=== PATIENT | female | born 1970 | race Caucasian/White ===

== ENCOUNTER 2018-03-22 08:51 | Day surgery (SDC) | payer OTHER, SELFPAY ==
[2018-03-16 10:45] VITALS: BMI 34.2
[2018-03-22] VITALS (13 sets, daily range): BP systolic 97–144; BP diastolic 58–96; PULSE 71–107; RESP 10–20; TEMP 36.1–37.2; O2SAT 96–100; BMI 34.2
[2018-03-22] MEDS: CELECOXIB 200 MG CAPSULE PO (09:41)
[2018-03-22] MEDS: LACTATED RINGERS 1,000 ML 42 ML IV (09:41)
[2018-03-22] MEDS: ACETAMINOPHEN 325 MG TABLET 975 MG PO ×3 (09:42→20:31)
[2018-03-22] MEDS: PREGABALIN 75 MG CAPSULE PO (10:18)
[2018-03-22] MEDS: VANCOMYCIN 1,000 MG/200 ML FROZ.PIGGY 200 MG IV ×2 (10:19→22:40)
--- NOTE | 2018-03-22 10:25 | PM.PREOP ---
Pre-operative Note Interval Note Pre-op Check: Yes History & Physical Reviewed by Physician and Yes Exam Performed Changes: No
[2018-03-22] MEDS: ONDANSETRON 4 MG/2 ML INJ IV ×3 (10:39→21:35)
[2018-03-22] MEDS: DEXAMETHASONE 10 MG/ML VIAL 8 MG IV (10:41)
--- NOTE | 2018-03-22 11:03 | PM.OP.1 ---
Operative Date/Time/Diagnoses Date of procedure: 03/22/18 Time of procedure: 12:30 Pre-op diagnosis: Left knee osteoarthritis Post-op diagnosis: same Procedure & Clinicians Procedure: Left total knee replacement Same procedure as scheduled: Yes Indications: The patient has had progressively worsening left knee pain with radiographic changes consistent with arthritis. Non-operative management has failed and the patient has requested total knee replacement. The risks, benefits and alternatives to surgery were discussed with the patient prior to proceeding. Risks discussed included, but were not limited to, failure to relieve pain, stiffness, infection, nerve damage, deep venous thrombosis, pulmonary embolism, stroke, coma, heart attack, permanent paralysis and , as well as the potential need for eventual revision of the prosthetic. Surgeon: Milind Cantrell Wheel Installer: Merced Rosales Click Yes if Unassisted: No Anesthesia Type: Spinal, Sedation and Local Operative Notes Findings: Severe medial and significant patellofemoral osteoarthritis Closure Type: primary Specimen(s): none sent Implants & Drains: Implants used in this procedure were manufactured by the [employer] and [email or web address] and included the BCS II Journey total knee replacement with a size 3 Oxinium femur, a size 2 non porous tibial base plate, a 9 mm cross-linked polyethylene BCS II tibial insert and a 29 mm oval Jaylyn II patellar implant. Applied: implant(s) Estimated Blood Loss (mL): 25 Blood products transfused: none Tourniquet time (min): 54 Procedure in detail: The patient was seen in the pre-operative area, where the left knee was identified as the operative site and this was marked with my initials. The patient received pre-operative antibiotics, and was taken to the operating room and placed on the operative table in the supine position. After satisfactory anesthesia, a registered phlebotomist part time out? was performed. The left leg was encircled with a tourniquet about the proximal thigh, and the leg was prepared from the toes to the tourniquet with ChloroPrep in the usual fashion and draped through sterile drapes. The leg was elevated and exsanguinated with Eschmark bandage and the tourniquet inflated to 250 mmHg pressure. The knee was approached through an approximately 18 cm incision centered over the patella and carried into the knee through a medial parapatellar arthrotomy. The anterior osteophytes and soft tissues were removed. The rotational landmarks of Loly's line and the transepicondylar axis were marked on the femur with electrocautery, and intramedullary guide holes for the femur and tibia were created. The distal femoral cut was made in 6 degrees of valgus using the intramedullary guide at the primary cut setting. The proximal tibial cut was then made using the intramedullary guide, taking 9 mm of bone off the less involved side. The extension gap was checked and the rotation of the femoral component confirmed with the gap balancing blocks. The anterior, posterior and chamfer cuts were then made. The posterior osteophytes and soft tissues were then removed. The posterior capsule was injected with part of a mixture of 50 ml 0.25% Marcaine mixed with 20 ml Exparel and 4 mg of morphine for post-operative pain control. The remainder of this mixture was injected into the capsule and subcutaneous tissues during cement curing. The tibia was prepared with the rotation set by an extra medullary guide. Trial tibial and femoral components were then placed and the intercondylar notch cut through the femoral trial. Range of motion was 0-135 degrees, with good stability throughout the range. The patella was then cut to accommodate the patellar prosthetic. There was no need for a lateral release. The trials were then removed, and the femoral hole plugged with a bone plug. The bone was prepared with pulsatile lavage, and dried with a sponge. Cement was applied and the final prosthetics placed. Excess cement was removed during and after cement curing. After confirming there was no extruded cement posteriorly, the final tibial insert was placed. The knee was copiously irrigated and the tourniquet deflated. Hemostasis was obtained. The capsule was closed with interrupted # 2 polyester sutures. The subcutaneous layer was closed with 3-0 Vicryl, and the skin with a running 3-0 V-Lock suture and SteriStrips. An Aquacel Ag dressing was applied and the patient was taken to recovery having tolerated the procedure well. Complications: none Condition: stable Disposition: PACU Plan for aftercare: The patient will be maintained on a standard total knee replacement protocol with weight bearing as tolerated. The patient will receive aspirin and sequential compression devices for DVT prophylaxis. The patient will be discharged home when safe for the home environment.
[2018-03-22] MEDS: TRANEXAMIC ACID 1,000 MG VIAL 2000 MG INJ ×2 (11:18→12:22)
--- NOTE | 2018-03-22 11:37 | SUR.OPER ---
Supine on padded OR bed. Pillow under head, arms secured on padded armboards <90 degree abduction. Safety belt across torso. Non-operative leg secured with tape over blanket over lower leg. Operative leg secured in DeMayo/Julio positioner. Foam padded brace at thigh of operative leg.
[2018-03-22] MEDS: BUPIVACAINE 0.25% W/ EPI VIAL 50 ML INJ (11:43)
[2018-03-22] MEDS: BUPIVACAINE LIPOSOME 266 MG/20 ML VIAL INJ (11:44)
[2018-03-22] MEDS: MORPHINE 4 MG/ML INJ IV (11:46)
--- NOTE | 2018-03-22 12:27 | PC.NURSE ---
Day shift: Pt not on this AC unit at tis time. 1230.
--- NOTE | 2018-03-22 12:44 | DI.RAD.S_ITS ---
PROCEDURE: XR KNEE LT 1TO2V INDICATIONS: post operative total left knee TECHNIQUE: 2 view(s) of the knee acquired. COMPARISON: [facility], , KNEE 1-2 VIEWS RIGHT, 06/22/2017, 13:00. FINDINGS: Bones: Patient is status post knee joint arthroplasty. Hardware components are in expected positions. Visualized bony structures are intact. Soft tissues: Overlying postoperative changes are noted. IMPRESSION: Expected postoperative appearance Dictated by: Tulio Billy M.D. on 03/22/2018 at 13:21 Approved by: Tulio Billy M.D. on 03/22/2018 at 13:21
[2018-03-22] MEDS: HYDROMORPHONE 2 MG INJ 0.5 MG IV ×4 (13:05→13:35)
--- NOTE | 2018-03-22 13:25 | SUR.PHASEI ---
assumed care from andree, medicated with dilaudid for 10/10 pain to l knee, now down to 6/10. placed on naqsal cannula 02 as pt became sleepy after med given.
--- NOTE | 2018-03-22 13:49 | PC.NURSE ---
Day shift: Arrived on unit at approx 1335 from PACU. A&Ox3. Oriented to room and call light. Agrees to not get OOB w/o help. Left ian HARDIN and Niharika CARBONE. Tolerating SCD's. Drinking ice water and having a cracker.
[2018-03-22] MEDS: LACTATED RINGERS 1,000 ML 125 ML IV ×2 (14:31→22:41)
[2018-03-22] MEDS: HYDROMORPHONE 0.5 MG INJ IV (15:00)
--- NOTE | 2018-03-22 15:02 | PT.IPTN ---
Current Diagnoses Unilateral primary osteoarthritis, left knee (03/22/18) Surgery Performed Operation Date: 03/22/18 11:15 Actual Procedures p Total Knee Arthroplasty(Left) - Milind Cantrell MD Physical Therapy Treatment Note M3 PT-IP Subjective Start: 03/22/18 15:01 Freq: NEEDED Status: Active Protocol: Document 03/22/18 15:01 [facility] (Rec: 03/22/18 15:02 [facility] [email or web address]) Subjective Physical Therapy Visit Type Type Patient Unavailable Visit Start Time 15:00 Notes Checked on pt and she was drowsy and falling asleep during assessment of mm strength. Does not have quad or glute activation at this time. Will check back when pt more appropriate.
[2018-03-22] MEDS: OXYCODONE IR 5 MG TABLET PO ×2 (16:37→20:29)
--- NOTE | 2018-03-22 16:58 | PT.IPTN ---
Current Diagnoses Unilateral primary osteoarthritis, left knee (03/22/18) Surgery Performed Operation Date: 03/22/18 11:15 Actual Procedures p Total Knee Arthroplasty(Left) - Milind Cantrell MD Physical Therapy Treatment Note M3 PT-IP Subjective Start: 03/22/18 15:01 Freq: NEEDED Status: Active Protocol: Document 03/22/18 16:54 [facility] (Rec: 03/22/18 16:58 [facility] [id number]) Subjective Physical Therapy Visit Type Type Patient Refusal Notes At 1650 pt approached in bed with pain meds was given; unable to lift LLE with increased left knee pain when tried. Patient in tears while trying to perform MMT. Nurse informed the situation and patient agreeable to participate tomorrow a.m
[2018-03-22] MEDS: ASPIRIN EC 81 MG TABLET PO (20:29)
[2018-03-22] MEDS: AMLODIPINE 5 MG TABLET 10 MG PO (20:29)
[2018-03-22] MEDS: DOCUSATE 100 MG CAPSULE PO (20:31)
[2018-03-22] MEDS: buPROPion SR 150 MG TAB PO (20:31)
[2018-03-22] MEDS: INFLUENZA VACCINE 0.5 ML SYRINGE IM (20:36)
[2018-03-22] MEDS: BECLOMETHASONE 40 MCG INH 10.6 GM 2 PUFF INH (20:37)
--- NOTE | 2018-03-22 23:41 | PC.NURSE ---
1500- assumed care of pt from outgoing shift at this time. Pt asleep at this time. Lr infusing. call light and belongings within reach. will continue o monitor 1600- Pt awake. compliant with nursing assessment. Pt uses call light. Pt nauseous. but states it should pass. family at bedside. 1700- Pt ate dinner then threw up. states she thinks she ate too fast. Pt then finished a bit more of dinner. 2019- compliant with med pass. did get a little nauseous after meds given, did not throw up. given zofran. did help a little pt stated it didn't h3elp as much as earlier though. Pt pain seems pretty well controlled with oral oxycodone. Pt tolerating well. Pt set up home cpap. given sterile water. Pt cooperative. Pt completes all tala care. Pt is on her period, pads provided and brief given. dsg c.d.i. will continue to monitor. Pt not oob, unable to do any work with Pt as pain was too severe. scds on. will continue to monitor.
[2018-03-23] MEDS: OXYCODONE IR 5 MG TABLET PO ×6 (00:22→16:15)
[2018-03-23] MEDS: IBUPROFEN 600 MG TABLET PO ×2 (03:59→12:52)
[2018-03-23 05:48] VITALS: BP 107/69; PULSE 94; RESP 18; TEMP 36.7; O2SAT 98
[2018-03-23 06:09] LABS: Hematocrit 35.2 % (36-46); Hemoglobin 12.5 g/dL (12.0-16.0)
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
[2018-03-23 07:53] VITALS: BP 112/74; PULSE 77; RESP 16; TEMP 36.7; O2SAT 99
[2018-03-23] MEDS: ACETAMINOPHEN 325 MG TABLET 975 MG PO ×2 (08:59→14:51)
[2018-03-23] MEDS: ASPIRIN EC 81 MG TABLET PO (08:59)
[2018-03-23] MEDS: CHLORTHALIDONE 25 MG TABLET PO (09:00)
[2018-03-23] MEDS: IRBESARTAN 150 MG TABLET PO (09:00)
[2018-03-23] MEDS: DOCUSATE 100 MG CAPSULE PO (09:00)
[2018-03-23] MEDS: buPROPion SR 150 MG TAB PO (09:00)
[2018-03-23] MEDS: POLYETHYLENE GLYCOL 3350 17 GM POWD.PACK PO (09:01)
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
[2018-03-23] MEDS: hydrOXYzine pamoate 25 MG CAPSULE PO ×2 (09:58→14:50)
[2018-03-23] MEDS: BECLOMETHASONE 40 MCG INH 10.6 GM 2 PUFF INH (10:24)
[2018-03-23] MEDS: ONDANSETRON 4 MG/2 ML INJ IV ×2 (10:27→10:53)
[2018-03-23 10:31] VITALS: O2SAT 98
[2018-03-23 11:20] VITALS: BP 110/67; PULSE 79; RESP 17; TEMP 36.8; O2SAT 100
--- NOTE | 2018-03-23 14:59 | CM.DANOTE ---
DCP/Assessment: Reviewed chart. Patient is a 48yr old female admitted to [facility] ([facility]) for left TKA performed on 03-22-[address] Cantrell. PCP is Dr. Guadarrama. Primary payor is Jam[employer]. Met with patient explained CM/SW role. Patient reports that she plans to d/c home today. Patient had right knee done this year and feels comfortable with what to expect. Patient has family in the residence that can assist. Patient has all needed DME and outpatient therapy scheduled in [place]. No additional d/c planning needs identified. P: Home today. ANUPAMA Irene Discharge Planning/Care Management CM Discharge Assessment Start: 03/23/18 14:57 Freq: Status: Active Protocol: Document 03/23/18 14:57 KJS (Rec: 03/23/18 14:57 KJS [id number]) Discharge Planning Assessment Assigned Ordnance Engineering Technician ANUPAMA Irene Contact Information Shaji Rene (ph# [phone] ) Advance Directives? No History Provided By Patient Has Patient been admitted in last 30 No days? Prior Living Arrangements House Household Members significant other children Type of transporation used prior to Drives own vehicle admit Independent with ADL's Yes Is patient alert and oriented? Yes Caregiver for Another No Patient/Family Preference OP PT Therapy Barriers to Discharge No Discharge Plan Home Referrals Initiated None needed Review Status In Process Please Provide Date Initial DC 03/23/18 Assessment Was Performed Next Review Type Continued Stay Review Pre-Anesthesia Assessment Start: 03/16/18 10:45 Freq: Status: Complete Protocol: Document 03/16/18 10:45 CAB (Rec: 03/16/18 11:34 CAB [id number]) Pre-Anesthesia Assessment Patient Information Reviewed Via Phone Assessment Assessment Completed With Patient Consent for Planned Operative Procedure( Yes s) Verified Primary Care Provider Neo Seen Specialist in Last 12 Months Yes Specialist Seen Orthopedist Comment PCP clearance note 03/11/18 to med records to be scanned Primary Language Trinidadian Mill Stenciler Required No Height 159.39 cm Weight 87.09 kg Body Mass Index (BMI) 34.2 Hearing Ability Normal Visual Assist Contacts Glasses Dentition Type Teeth, Natural Present Barriers to Learning Memory Comment Short term memory loss r/t TBI Hx Anesthesia Reactions No Hx Family Anesthesia Reaction No Hx Malignant Hyperthermia No Hx Blood Transfusions No Anesthesia Review Requested No Brick Or Block Maker No alcohol intake current alcohol intake frequency a few times a month Smoking Status Never smoker Substance Use Type marijuana Comment Edible form Pain Present Pain Reported Musculoskeletal Symptoms Abnormal Gait Back Pain Difficulty Walking Joint Pain Muscle Weakness Neck Pain Numbness Radiating Pain into Limb History of Falling (Recent or History of No ) Patient is completely paralyzed or No completely immobile Mental Status Oriented to own ability Is patient on oxygen? No Does patient have HAGER/SOB No Hx Sleep Apnea Yes CPAP/BIPAP use prescribed and used routinely Will Bring CPAP/BIPAP DOS Yes Currently Taking a Beta Juventino No Can You Climb a Flight of Stairs Without Yes SOB Hx Chest Pain No Hx SOB Yes: r/t Asthma Hx Syncope or Dizziness No Anti-Coagulant Therapy No Has a Blow Down Operator No Cardiac Testing No Hx Pacemaker/ICD No Pacemaker Rep Required? No Cardiac Clearance Received Not Applicable Diet Type At Home Regular dysphagia No Bladder Pattern Nocturia Urinary Catheter Present No Hx Urinary Self Catheterization No Diabetes No Patient No Lactating No Hx Drug Resistant Organism No Presence of External or Internal Medical Yes Devices Comment Right knee prosthesis, left ankle screws Have you traveled outside the [facility] in the last 30 days? Marital Status Lives With significant other children Prior Living Arrangements House Number of Floors (Floors) Two Floors Number of Stairs To Enter/Railing? 2 stairs, no railing Support System Friend(s) Significant Other Does the Patient Have Assistance After Yes Surgery Patient Discharge Plan Description Return Home Comment Pt has not been advised on length of stay per surgeon's office Feels Safe in Current Environment Yes Been Physically Hurt or Threatened By a No Person in Current Environment Do you have thoughts of harming yourself None or others? Are you currently considering suicide? No Do you have a plan to hurt yourself or No Plan others? Do You Have Any Spiritual Beliefs That No May Affect Your HC Choices? Do You Have Any Cultural Practices That No May Affect Your HC Choices? Spiritual Referral None Comment Ricks Who Can We Speak to About Patient's Care Family, friends Identifying Code for Release of Patient Declines to issue Information Health Care Proxy/Next of Kin Shaji Rene (S.O.) Health Care Proxy Emergency Contact Name Shaji Rene (S.O.) Ozzy ( Dad) Emergency Contact Phone Number [phone] Ozzy: [phone] Advance Directives? No: Declines further information Power of Drafter Automotive Design Layout No PAC Instructions Do not shave/clip surgical site Durable medical equipment Medications to take/avoid Nasal antibiotic No ETOH/petroleum product on skin DOS NPO Post-op transportation Pre-surgical wash Sensory aids Sturdy shoes/comfortable clothes Do not bring valuables and remove jewelry
--- NOTE | 2018-03-23 15:19 | PT.IPTN ---
Addendum entered and electronically signed by Emili Butler, PT 03/23/18 16:20: I certify I directly supervised and guided this session. R Veena Butler, DPLina Original Note: Current Diagnoses Unilateral primary osteoarthritis, left knee (03/22/18) Surgery Performed Operation Date: 03/22/18 11:15 Actual Procedures p Total Knee Arthroplasty(Left) - Milind Cantrell MD Physical Therapy Treatment Note M2 PT-IP Current Condition Start: 03/22/18 15:01 Freq: NEEDED Status: Active Protocol: Document 03/23/18 09:08 (Rec: 03/23/18 12:21 [id number]) Physical Therapy Current Condition Current Condition Evaluation Date 03/23/18 Treatment Diagnosis L TKA; difficulty walking Onset Date 03/22/18 Weight Bearing Status Weight Bearing Status Weight Bear as Tolerated M3 PT-IP Subjective Start: 03/22/18 15:01 Freq: NEEDED Status: Active Protocol: Document 03/23/18 15:19 (Rec: 03/23/18 16:12 [email or web address]) Subjective Physical Therapy Visit Type Type Treatment Note Visit Start Time 15:19 Visit Stop Time 15:44 Total Visit Minutes 25 Number of RN CARE TRANSITION Visits 0 Physical Therapy Visit Comments Patient Comments Patient agreeable to mobilize with PT including stair climbing. Her boyfriend Shaji is her for caregiver training . M4 PT-IP Mobility and Gait Start: 03/22/18 15:01 Freq: NEEDED Status: Active Protocol: Document 03/23/18 15:19 (Rec: 03/23/18 16:12 [email or web address]) PT-Transfer Assessment Sit to and From Stand Sit to and from Stand Standby Assistance Equipment Transfer Assistive Device Gait Belt Front Wheeled Walker Orthotic/Prosthetic Devices or Brace: No Transfers Transfer Destination Chair Wheelchair Gait Assessment Gait Gait Assistance Required: Standby Assistance Distance (Feet) 20 Able to Maintain Weight Bearing Status Yes During Gait Assistive Devices Assistive Device Gait Belt Front Wheeled Walker Gait Deviations General Gait Pattern Antalgic Factors Limiting Gait Function Factors Limiting Gait Function Decreased Activity Tolerance Decreased Strength Limited Range of Motion Pain Poor Balance Stair Climbing Assessment Evaluation Level of Assist On Stairs Contact Guard Assistance 1 Person Assistance Devices Stair Climbing Assistive Devices Right Railing Technique/Endurance Stair Climbing Direction Ascend and Descend Stair Climbing Technique Step to Step Number of Steps Climbed 3 Query Text: Stair Climbing Set # Repetitions (reps) 1 Comments Stair Climbing Comments Descends backwards due to need to perform stairs using only R rail/post to access home. M5 PT-IP Objective Assessments Start: 03/22/18 15:01 Freq: NEEDED Status: Active Protocol: Document 03/23/18 09:08 (Rec: 03/23/18 12:21 [email or web address]) Orientation Orientation/Cognition Level of Alertness Alert Orientation Name Birthday Day of Week Place Situation Language Function Ability No Deficits Noted Safety Awareness Decreased Safety Awareness Memory Description No Deficits Noted Gross Range of Motion Lower Extremity ROM Assessment Left Impaired Impairments Knee flexion ~30 deg Strength Lower Extremity Strength Assessment Left Impaired Hip 3+/5 Knee 2-/5 Ankle 5/5 Comments Strength Comments R WNL. M6 PT-IP Treatment Start: 03/22/18 15:01 Freq: NEEDED Status: Active Protocol: Document 03/23/18 15:19 (Rec: 03/23/18 16:12 [email or web address]) Physical Therapy Treatment Other Treatments Other Treatment Performed Caregiver training performed today including gait belt donning/offing and hand placement on gait belt, safeguarding during sit <> stand, ambulation, and stair climbing. Caregiver and patient are able to demonstrate all of these skills appropriately with PT SBA for safety. Caregiver/ Shaji needed min cues during his performance but was able to complete safely. Pt and Caregiver/Shaji verbalize feeling safe and comfortable with techniques performed today and both state feeling ready/safe for home. M7 PT-IP Assessment and Plan Start: 03/22/18 15:01 Freq: NEEDED Status: Active Protocol: Document 03/23/18 15:19 (Rec: 03/23/18 16:12 [email or web address]) PT Summary Assessment and Plan Potential Rehabilitation Potential Good Status of Condition at Evaluation Stable Summary Impairments Pain ROM Strength Balance Bed Mobility Transfers Gait Activity Tolerance Progress Towards Goals Progressing Toward Goals Assessment Summary Pt with difficulty walking s/p L TKA. She was able to demonstrate safe stair climing up/down 3 steps with R rail, and Caregiver/boyfriend Shaji demonstrated good safeguarding technique during sit <> stands, ambulation and stair climbing. Recommend d/c to home with assist and f/u OP PT for rehab s/p L TKA. Goals Bed Mobility Goal Independent Transfer Goal Independent Front Wheeled Walker Gait Goal Standby Assistance Front Wheel Walker Gait Distance 150 Other Goals STG: Pt will up/down 3 stairs using R rail ascending and CGA: GOAL MET. LTG: Pt will ambulate 300 ft. SBA: Partially met at 150 ft . Frequency of Treatment Frequency Of Treatment Discharge Recommendations To Nursing Amount of Assist Needed Standby Assistance Discharge Recommendations PT Discharge Recommendations Home with Assistance Outpatient PT
--- NOTE | 2018-03-23 15:19 | PT.IPTN ---
Current Diagnoses Unilateral primary osteoarthritis, left knee (03/22/18) Surgery Performed Operation Date: 03/22/18 11:15 Actual Procedures p Total Knee Arthroplasty(Left) - Milind Cantrell MD Physical Therapy Treatment Note M2 PT-IP Current Condition Start: 03/22/18 15:01 Freq: NEEDED Status: Active Protocol: Document 03/23/18 09:08 (Rec: 03/23/18 12:21 [email or web address]) Physical Therapy Current Condition Current Condition Evaluation Date 03/23/18 Treatment Diagnosis L TKA; difficulty walking Onset Date 03/22/18 Weight Bearing Status Weight Bearing Status Weight Bear as Tolerated M3 PT-IP Subjective Start: 03/22/18 15:01 Freq: NEEDED Status: Active Protocol: Document 03/23/18 15:19 (Rec: 03/23/18 16:12 [email or web address]) Subjective Physical Therapy Visit Type Type Treatment Note Visit Start Time 15:19 Visit Stop Time 15:44 Total Visit Minutes 25 Number of TITLE EXAMINER Visits 0 Physical Therapy Visit Comments Patient Comments Patient agreeable to mobilize with PT including stair climbing. Her boyfriend Shaji is her for caregiver training . M4 PT-IP Mobility and Gait Start: 03/22/18 15:01 Freq: NEEDED Status: Active Protocol: Document 03/23/18 15:19 (Rec: 03/23/18 16:12 [email or web address]) PT-Transfer Assessment Sit to and From Stand Sit to and from Stand Standby Assistance Equipment Transfer Assistive Device Gait Belt Front Wheeled Walker Orthotic/Prosthetic Devices or Brace: No Transfers Transfer Destination Chair Wheelchair Gait Assessment Gait Gait Assistance Required: Standby Assistance Distance (Feet) 20 Able to Maintain Weight Bearing Status Yes During Gait Assistive Devices Assistive Device Gait Belt Front Wheeled Walker Gait Deviations General Gait Pattern Antalgic Factors Limiting Gait Function Factors Limiting Gait Function Decreased Activity Tolerance Decreased Strength Limited Range of Motion Pain Poor Balance Stair Climbing Assessment Evaluation Level of Assist On Stairs Contact Guard Assistance 1 Person Assistance Devices Stair Climbing Assistive Devices Right Railing Technique/Endurance Stair Climbing Direction Ascend and Descend Stair Climbing Technique Step to Step Number of Steps Climbed 3 Query Text: Stair Climbing Set # Repetitions (reps) 1 Comments Stair Climbing Comments Descends backwards due to need to perform stairs using only R rail/post to access home. M5 PT-IP Objective Assessments Start: 03/22/18 15:01 Freq: NEEDED Status: Active Protocol: Document 03/23/18 09:08 (Rec: 03/23/18 12:21 [email or web address]) Orientation Orientation/Cognition Level of Alertness Alert Orientation Name Birthday Day of Week Place Situation Language Function Ability No Deficits Noted Safety Awareness Decreased Safety Awareness Memory Description No Deficits Noted Gross Range of Motion Lower Extremity ROM Assessment Left Impaired Impairments Knee flexion ~30 deg Strength Lower Extremity Strength Assessment Left Impaired Hip 3+/5 Knee 2-/5 Ankle 5/5 Comments Strength Comments R WNL. M6 PT-IP Treatment Start: 03/22/18 15:01 Freq: NEEDED Status: Active Protocol: Document 03/23/18 15:19 (Rec: 03/23/18 16:12 [email or web address]) Physical Therapy Treatment Other Treatments Other Treatment Performed Caregiver training performed today including gait belt donning/offing and hand placement on gait belt, safeguarding during sit <> stand, ambulation, and stair climbing. Pt is able to demonstrate all of these skills appropriately with the patient today and PT SBA for safety. Caregiver/Shaji needed min cues during his performance but was able to complete safely. Pt and Caregiver/Shaji verbalize feeling safe and comfortable with techniques performed today and both state feeling ready/safe for home. M7 PT-IP Assessment and Plan Start: 03/22/18 15:01 Freq: NEEDED Status: Active Protocol: Document 03/23/18 15:19 (Rec: 03/23/18 16:12 [email or web address]) PT Summary Assessment and Plan Potential Rehabilitation Potential Good Status of Condition at Evaluation Stable Summary Impairments Pain ROM Strength Balance Bed Mobility Transfers Gait Activity Tolerance Progress Towards Goals Progressing Toward Goals Assessment Summary Pt with difficulty walking s/p L TKA. She was able to demonstrate safe stair climing up/down 3 steps with R rail, and Caregiver/boyfriend Shaji demonstrated good safeguarding technique during sit <> stands, ambulation and stair climbing. Recommend d/c to home with assist and f/u OP PT for rehab s/p L TKA. Goals Bed Mobility Goal Independent Transfer Goal Independent Front Wheeled Walker Gait Goal Standby Assistance Front Wheel Walker Gait Distance 150 Other Goals STG: Pt will up/down 3 stairs using R rail ascending and CGA: GOAL MET. LTG: Pt will ambulate 300 ft. SBA: Partially met at 150 ft . Frequency of Treatment Frequency Of Treatment Discharge Recommendations To Nursing Amount of Assist Needed Standby Assistance Discharge Recommendations PT Discharge Recommendations Home with Assistance Outpatient PT
== END 2018-03-23 16:35 | disposition home or self-care (01) ==
LOC: OR 08:53 → AC 08:54
PROVIDERS: Visit Provider Orthopaedic Surgery
PROC: 0SRD0JZ Replacement of Left Knee Joint with Synthetic Substitute, Open Approach (ICD-10-PCS; CPT 27447; principal; 2018-03-22 11:15)
DX: M17.12 Unilateral primary osteoarthritis, left knee (principal); Z23 Encounter for immunization; G47.33 Obstructive sleep apnea (adult) (pediatric); I10 Essential (primary) hypertension; J45.909 Unspecified asthma, uncomplicated
CPT/HCPCS: 27447; 36415; 73560; 85014; 85018; 90471; 90656; 94640; 97116; 97161; 97530; C1776; C9290; J1100; J1170; J2250; J2270; J2405; J2704; J3370; Q2038